=== PATIENT | male | born 1960 | race Caucasian/White ===

== ENCOUNTER → 2021-07-15 13:50 | Outpatient (CLI) | payer BC, SELFPAY ==
[2020-07-09 11:41] VITALS: BMI 26.1
--- NOTE | 2021-07-15 13:53 | ECHOCS_ITS ---
Reason For Study: AORTIC INS Procedure This was a 2D Doppler, Color Flow transthoracic echocardiogram. The study was technically difficult. Contrast injection was performed. Exam performed in department. Left Ventricle Normal LV size. The estimated ejection fraction is 70 %. Normal diastology for age. No regional wall motion abnormalities noted. Right Ventricle Normal RV size. Normal systolic function. Atria Normal left atrium. Normal right atrium. No doppler evidence for ASD. Mitral Valve There is moderate mitral annular calcification. There is no mitral valve stenosis. No mitral valve insufficiency. Tricuspid Valve There is no tricuspid stenosis. Unable to estimate RV systolic pressure due to inadequate jet, pulmonary artery pressure probably normal. Aortic Valve Mild diffuse aortic valve thickening. Trisinus/trileaflet aortic valve. There is no aortic stenosis. Trivial aortic valve insufficiency. Pulmonic Valve There is no pulmonic valvular stenosis. Trivial pulmonic valve insufficiency. Great Vessels Normal aortic root. Pericardium/Pleural No pericardial effusion. Medication 22 gauge I.V. with prn adaptor inserted into left arm. Diluted definity 2.0ml given slow IV push to enhance endocardial definition. MMode/2D Measurements & Calculations LVIDd: 4.2 cm IVSd: 1.0 cm LVOT diam: 2.0 cm LVIDs: 2.8 cm LVPWd: 0.95 cm RVDd: 3.2 cm FS: 34.8 % LVOT area: 3.1 cm2 Ao root diam: 3.3 cm LAV(MOD-bp): 31.0 ml EDV(MOD-sp4): 83.3 ml LAV(MOD-bp) Indexed: 15.8 ml/m2 ESV(MOD-sp4): 27.9 ml LAV(MOD-sp2): 32.5 ml EF(MOD-sp4): 66.5 % LAV(MOD-sp4): 31.6 ml EDV(MOD-sp2): 73.5 ml SV(MOD-sp4): 55.4 ml SV(MOD-sp2): 46.9 ml ESV(MOD-sp2): 26.6 ml EF(MOD-sp2): 63.8 % LA dimension(2D): 3.2 cm LA A4 area: 13.9 cm2 RA A4 area: 12.7 cm2 Doppler Measurements & Calculations MV E max vahe: 72.9 cm/sec Lat Peak E' Vahe: 9.8 cm/sec Med Peak E' Vahe: 6.8 cm/sec MV A max vahe: 97.8 cm/sec E/E' lat: 7.4 E/E' med: 10.7 MV E/A: 0.75 Ao V2 max: 201.2 cm/sec AI max vahe: 379.9 cm/sec LV V1 max: 127.7 cm/sec Ao max P.2 mmHg AI max P.7 mmHg LV V1 max P.5 mmHg Ao V2 mean: 130.9 cm/sec AI dec slope: 271.2 cm/sec2 LV V1 mean P.4 mmHg Ao mean P.7 mmHg AI P1/2t: 410.3 msec LV V1 mean: 86.8 cm/sec Ao V2 VTI: 29.8 cm LV V1 VTI: 21.9 cm BLANCA(I,D): 2.3 cm2 BLANCA(V,D): 2.0 cm2 SV(LVOT): 68.1 ml PA V2 max: 96.1 cm/sec PI end-d vahe: 115.7 cm/sec TR max vahe: 194.8 cm/sec TR max P.2 mmHg ECHO/Echo Complete W/ Contrast Interpretation Summary The estimated ejection fraction is 70 %. Trivial aortic valve insufficiency. Ordering Physician: Zulema Velasco Referring Physician: MAYUR TEE Performed By: Irasema Reece, FRANSICO, RVT
== END ==
PROVIDERS: PCP Family Medicine; Referring Provider Specialist; Visit Provider Specialist
DX: I35.1 Nonrheumatic aortic (valve) insufficiency (principal)
CPT/HCPCS: 93306; Q9957; A4216; C8929; J3490

== ENCOUNTER → 2025-01-03 | Outpatient (CLI) | payer BC, SELFPAY ==
--- NOTE | 2025-01-03 14:28 | NEURO_ITS ---
NCS and/or EMG Patient Report Ordering Doctor: Shun Griffin DATE OF SERVICE: 01/03/25 Herman presents with complaints of numbness and tingling in the feet, worse on the right. Electrodiagnostic findings: Right peroneal motor nerve measured at the tibialis anterior demonstrates normal distal latency and amplitude with normal conduction velocity. Left peroneal motor nerve measured at the tibialis anterior demonstrates normal distal latency and amplitude with reduced conduction velocity. Right tibial motor nerve demonstrates normal distal latency, amplitude and conduction velocity. Left tibial motor nerve demonstrates normal distal latency and amplitude with reduced conduction velocity. Prolonged left p eroneal F?wave. Prolonged H?reflex bilaterally. Response bilaterally. Absent right medial plantar response. Needle EMG testing was performed the lower limbs. All muscles tested showed no evidence of denervation with normal motor unit action potentials. Electrodiagnostic impression: This is an abnormal study in the lower limbs. 1. 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 2. No electrodiagnostic evidence is noted for lumbosacral radiculopathy. Multi Select Codes Neurology Neurology Interp Codes: 67631-70 Musc test done w/n test comp (interp) (2) and 04520-15 Nrv cndj test 11-12 studies (interp)
== END | disposition home or self-care (01) ==
PROVIDERS: PCP Family Medicine; Referring Provider Family Medicine; Visit Provider Family Medicine
DX: R20.0 Anesthesia of skin (principal); R20.2 Paresthesia of skin
CPT/HCPCS: 95886; 95913